=== PATIENT | male | born 1940 | race Caucasian/White ===

== ENCOUNTER 2017-07-03 12:49 | Emergency (ER) | payer OTHER ==
[~2017-07-03] VITALS: Ht 165.1 cm; Wt 65.8 kg
[2017-07-03 12:56] VITALS: BP 123/58
--- NOTE | 2017-07-03 13:01 | NUR ---
Patient to bed 01.
--- NOTE | 2017-07-03 13:10 | NUR ---
77M BIB FAMILY C/O 04/26 "PRESSURE" RIGHT KNEE PAIN WITH SWELLING X LAST NIGHT. PT STATES NO RECENT FALL OR TRAUMA TO KNEE AT THIS TIME. CMS INTACT TO BL LEGS. SKIN INTACT. TENDER TO TOUCH TO RT KNEE. PT IS AOX4, RR ARE EVEN AND UNLABORED; NAD. PT POSITIONED TO COMFORT, BED DOWN. ER MD BENSON AWARE OF PT STATUS. WILL CONTINUE TO MONITOR.
[2017-07-03] MEDS ORDERED: ETHYL CHLORIDE 105 ML SPR TP ONE (14:00)
--- NOTE | 2017-07-03 14:10 | NUR ---
Santosh white in ED - 07/03/17 at 1516 by PRUDENCIO PT LAYING IN GURNEY SUPINE; MOTHER BY BEDSIDE; PT IS AOX4, RR ARE EVEN AND UNLABORED; WILL CONTINUE TO MONITOR
[2017-07-03 15:15] LABS: SPECIMENTYPE,BODY FLUID SYNOVIAL FLUID
[2017-07-03 15:16] LABS: APPEARANCE,SPUN,BODY FLUID TURBID (CLEAR); APPEARANCE,UNSPUN,BODY FLUID CLOUDY (CLEAR); COLOR,BODY FLUID YELLOW (LT YELLOW)
[2017-07-03 15:17] LABS: TOTAL VOLUME,BODY FLUID 8 mL
[2017-07-03 15:18] LABS: WBC, BODY FLUID 19800 /cu. mm.
[2017-07-03 15:21] LABS: POLYNUCLEAR, BODY FLUID 98 %
[2017-07-03 15:22] LABS: RBC, BODY FLUID 50 /cu. mm.
--- NOTE | 2017-07-03 16:10 | NUR ---
Patient discharged with v/s stable. Written and verbal after care instructions given and explained. Patient alert, oriented and verbalized understanding of instructions. Ambulatory with steady gait. All questions addressed prior to discharge. ID band removed. Patient advised to follow up with PMD. Rx of Clindamycin and Tyelnol with Codeine given. Patient educated on indication of medication including possible reaction and side effects. Opportunity to ask questions provided and answered.
[2017-07-03 16:11] VITALS: BP 154/70
[2017-07-03 16:18] LABS: GLUCOSE,BODY FLUID 286 mg/dL
== END 2017-07-03 16:10 | disposition home or self-care (01) ==
LOC: MED 12:49
DX: M13.861 Other specified arthritis, right knee (principal); Z86.73 Personal history of transient ischemic attack (TIA), and cerebral infarction without residual deficits; E11.9 Type 2 diabetes mellitus without complications
CPT/HCPCS: 36415; 82945; 82948; 84157; 89051; 99284